=== PATIENT | female | born 1990 | race Asian ===

== ENCOUNTER 2018-03-01 18:56 | Inpatient (IN) | payer OTHER ==
[~2018-03-01] VITALS: Ht 147.3 cm; Wt 38.7 kg
[2018-03-01 19:00] VITALS: Ht 147.3 cm; Wt 38.7 kg
[2018-03-01 19:54] LABS: PLATELET COUNT 242 x10^3mcL (130-400); RED CELL DISTRIBUTION WIDTH 12.9 % (11.5-14.5)
[2018-03-01 19:55] LABS: BASOPHIL % 0 % (0-2)
[2018-03-01 19:59] LABS: ALBUMIN 4.2 g/dL (3.4-5.0); BILIRUBIN TOTAL 1.1 mg/dL (0.20-1.00); CALCIUM 9.6 mg/dL (8.5-10.1); CARBON DIOXIDE 26.9 mmol/L (21-32); CREATININE SERUM 1.3 mg/dL (0.6-1.0)
[2018-03-01 20:10] LABS: TOTAL PROTEIN, SERUM 8.9 g/dL (6.4-8.2)
[2018-03-01 20:11] LABS: POTASSIUM SERUM 2.5 mmol/L (3.5-5.1)
[2018-03-01 21:57] LABS: PHOSPHOROUS 4.2 mg/dL (2.5-4.9)
[2018-03-01 22:00] LABS: CHOLESTEROL/HDL RATIO 6.7
[2018-03-01 22:03] LABS: T3 TOTAL 0.37 ng/mL
[2018-03-01 22:07] LABS: FREE T4 1.02 ng/dL (0.76-1.46); FREE THYROXINE INDEX 1.7 ug/dL (1.4-4.5); T4(THYROXINE) 4.7 ug/dL (4.7-13.3)
[2018-03-02 03:13] LABS: microscopic required? NO
[2018-03-02 03:53] LABS: AMPHETAMINE QUAL UR NONE DETECTED (See below)
[2018-03-02 04:04] LABS: CALCIUM 8.7 mg/dL (8.5-10.1); CARBON DIOXIDE 23.2 mmol/L (21-32); CHLORIDE SERUM 103 mmol/L (98-107); CREATININE SERUM 1.1 mg/dL (0.6-1.0); GFR1 > 60 mL/min; GLUCOSE SERUM 143 mg/dL (74-106); MAGNESIUM 2.4 mg/dL (1.8-2.4); POTASSIUM SERUM 3.5 mmol/L (3.5-5.1); SODIUM SERUM 144 mmol/L (136-145)
[2018-03-02 04:22] LABS: PLATELET COUNT 218 x10^3mcL (130-400); RED CELL DISTRIBUTION WIDTH 12.2 % (11.5-14.5)
[2018-03-02 04:23] LABS: BASOPHIL % 0.1 % (0-2)
[2018-03-02 04:31] LABS: PHOSPHOROUS 0.9 mg/dL (2.5-4.9)
[2018-03-02 05:21] LABS: urine erythrocyte NEGATIVE (NEGATIVE)
[2018-03-02 08:58] VITALS: BP 96/68
[2018-03-02 17:45] VITALS: BP 113/71
[2018-03-02 20:13] VITALS: BP 132/96
[2018-03-03 05:43] VITALS: BP 98/57
[2018-03-03 07:00] LABS: CALCIUM 8.5 mg/dL (8.5-10.1); CARBON DIOXIDE 34.3 mmol/L (21-32); CHLORIDE SERUM 94 mmol/L (98-107); CREATININE SERUM 0.4 mg/dL (0.6-1.0); GFR1 > 60 mL/min; GLUCOSE SERUM 170 mg/dL (74-106); MAGNESIUM 1.7 mg/dL (1.8-2.4); PHOSPHOROUS 1.2 mg/dL (2.5-4.9); SODIUM SERUM 138 mmol/L (136-145)
[2018-03-03 07:03] LABS: POTASSIUM SERUM 1.8 mmol/L (3.5-5.1)
[2018-03-03 07:05] LABS: BASOPHIL % 0.1 % (0-2); PLATELET COUNT 161 x10^3mcL (130-400); RED CELL DISTRIBUTION WIDTH 12.8 % (11.5-14.5)
[2018-03-03 08:56] VITALS: BP 124/86
[2018-03-03 13:43] VITALS: BP 114/77
[2018-03-03 15:25] LABS: CARBON DIOXIDE 35.7 mmol/L (21-32); CHLORIDE SERUM 95 mmol/L (98-107); CREATININE SERUM 0.7 mg/dL (0.6-1.0); GFR1 > 60 mL/min; GLUCOSE SERUM 167 mg/dL (74-106); POTASSIUM SERUM 3.3 mmol/L (3.5-5.1); SODIUM SERUM 137 mmol/L (136-145)
[2018-03-03 17:22] VITALS: BP 104/67
[2018-03-03 20:05] VITALS: BP 98/54
[2018-03-03 22:56] VITALS: BP 105/64
[2018-03-04 05:50] VITALS: BP 99/63
[2018-03-04 06:20] LABS: BASOPHIL % 0.1 % (0-2); PLATELET COUNT 183 x10^3mcL (130-400)
[2018-03-04 06:29] LABS: CALCIUM 9.2 mg/dL (8.5-10.1); CARBON DIOXIDE 35.7 mmol/L (21-32); CHLORIDE SERUM 95 mmol/L (98-107); CREATININE SERUM 0.5 mg/dL (0.6-1.0); GFR1 > 60 mL/min; GLUCOSE SERUM 106 mg/dL (74-106); MAGNESIUM 1.5 mg/dL (1.8-2.4); PHOSPHOROUS 2.3 mg/dL (2.5-4.9); SODIUM SERUM 140 mmol/L (136-145)
[2018-03-04 06:38] LABS: POTASSIUM SERUM 2.7 mmol/L (3.5-5.1)
[2018-03-04 09:42] VITALS: BP 114/83
[2018-03-04 16:24] VITALS: BP 124/65
[2018-03-04 16:26] LABS: CALCIUM 8.6 mg/dL (8.5-10.1); CARBON DIOXIDE 35.6 mmol/L (21-32); CHLORIDE SERUM 99 mmol/L (98-107); CREATININE SERUM 0.5 mg/dL (0.6-1.0); GFR1 > 60 mL/min; GLUCOSE SERUM 150 mg/dL (74-106); MAGNESIUM 2.7 mg/dL (1.8-2.4); POTASSIUM SERUM 3.5 mmol/L (3.5-5.1); SODIUM SERUM 139 mmol/L (136-145)
[2018-03-04 20:55] VITALS: BP 96/57
[2018-03-05 02:55] LABS: CALCIUM 8.4 mg/dL (8.5-10.1); CARBON DIOXIDE 30.3 mmol/L (21-32); CHLORIDE SERUM 109 mmol/L (98-107); CREATININE SERUM 0.5 mg/dL (0.6-1.0); GFR1 > 60 mL/min; GLUCOSE SERUM 146 mg/dL (74-106); POTASSIUM SERUM 4.5 mmol/L (3.5-5.1); SODIUM SERUM 145 mmol/L (136-145)
[2018-03-05 05:49] VITALS: BP 103/65
[2018-03-05 09:18] LABS: VITAMIN B6/PYRIDOXINE 1.8 ug/L (2.0-32.8)
[2018-03-05 09:26] VITALS: BP 107/74
[2018-03-05 13:57] VITALS: BP 103/71
[2018-03-05 17:27] VITALS: BP 106/70
[2018-03-05 21:58] VITALS: BP 107/73
[2018-03-06 05:55] VITALS: BP 106/74
[2018-03-06 09:38] VITALS: BP 117/83
[2018-03-06 12:53] VITALS: BP 116/88
[2018-03-06 17:41] VITALS: BP 133/82
[2018-03-06 21:15] VITALS: BP 104/72
[2018-03-07] VITALS (7 sets, daily range): BP systolic 110–138; BP diastolic 76–103
[2018-03-07 07:04] LABS: CALCIUM 9.4 mg/dL (8.5-10.1); CARBON DIOXIDE 32.8 mmol/L (21-32); CHLORIDE SERUM 104 mmol/L (98-107); CREATININE SERUM 0.4 mg/dL (0.6-1.0); GFR1 > 60 mL/min; GLUCOSE SERUM 113 mg/dL (74-106); POTASSIUM SERUM 3.9 mmol/L (3.5-5.1); SODIUM SERUM 144 mmol/L (136-145)
[2018-03-07 07:14] LABS: BASOPHIL % 0.1 % (0-2); PLATELET COUNT 256 x10^3mcL (130-400)
[2018-03-08 04:55] VITALS: BP 128/78
[2018-03-08 08:03] VITALS: BP 125/86
[2018-03-08 18:56] VITALS: BP 120/77
[2018-03-08 20:44] VITALS: BP 110/64
[2018-03-08 20:50] VITALS: BP 109/80
[2018-03-09 04:45] VITALS: BP 119/80
[2018-03-09 06:29] LABS: BASOPHIL % 0.2 % (0-2); PLATELET COUNT 332 x10^3mcL (130-400); RED CELL DISTRIBUTION WIDTH 13.7 % (11.5-14.5)
[2018-03-09 06:54] LABS: CALCIUM 9.3 mg/dL (8.5-10.1); CARBON DIOXIDE 29.2 mmol/L (21-32); CHLORIDE SERUM 108 mmol/L (98-107); CREATININE SERUM 0.4 mg/dL (0.6-1.0); GFR1 > 60 mL/min; GLUCOSE SERUM 99 mg/dL (74-106); MAGNESIUM 2.5 mg/dL (1.8-2.4); PHOSPHOROUS 3.2 mg/dL (2.5-4.9); POTASSIUM SERUM 3.8 mmol/L (3.5-5.1); SODIUM SERUM 143 mmol/L (136-145)
[2018-03-09 08:46] VITALS: BP 123/81
[2018-03-09 12:37] VITALS: BP 112/72
[2018-03-09 14:08] LABS: RED BLOOD CELLS 3.63 M/mm3 (4.10-5.10)
[2018-03-09 14:15] LABS: IRON 44 ug/dL (50-170); TOTAL IRON BINDING CAPACITY 166 ug/dL (250-450)
[2018-03-09 17:40] VITALS: BP 99/80
[2018-03-09 20:52] VITALS: BP 124/69
[2018-03-10 05:53] VITALS: BP 123/69
[2018-03-10 05:58] LABS: CARBON DIOXIDE 27.7 mmol/L (21-32); CHLORIDE SERUM 108 mmol/L (98-107); CREATININE SERUM 0.4 mg/dL (0.6-1.0); GFR1 > 60 mL/min; GLUCOSE SERUM 95 mg/dL (74-106); MAGNESIUM 2.5 mg/dL (1.8-2.4); POTASSIUM SERUM 3.5 mmol/L (3.5-5.1); SODIUM SERUM 143 mmol/L (136-145)
[2018-03-10 06:37] LABS: BASOPHIL % 0.1 % (0-2); PLATELET COUNT 350 x10^3mcL (130-400)
[2018-03-10 08:07] VITALS: BP 117/76
[2018-03-10 11:41] VITALS: BP 117/72
[2018-03-10 17:30] VITALS: BP 123/77
[2018-03-10 21:32] VITALS: BP 106/56
[2018-03-11] VITALS (7 sets, daily range): BP systolic 113–158; BP diastolic 68–93
[2018-03-11 06:18] LABS: CALCIUM 9.9 mg/dL (8.5-10.1); CARBON DIOXIDE 28.2 mmol/L (21-32); CHLORIDE SERUM 108 mmol/L (98-107); CREATININE SERUM 0.5 mg/dL (0.6-1.0); GFR1 > 60 mL/min; GLUCOSE SERUM 97 mg/dL (74-106); MAGNESIUM 2.7 mg/dL (1.8-2.4); PHOSPHOROUS 5.3 mg/dL (2.5-4.9); POTASSIUM SERUM 3.7 mmol/L (3.5-5.1); SODIUM SERUM 145 mmol/L (136-145)
[2018-03-11 06:21] LABS: BASOPHIL % 0.1 % (0-2); RED CELL DISTRIBUTION WIDTH 14.1 % (11.5-14.5)
[2018-03-11 06:54] LABS: PLATELET COUNT 426 x10^3mcL (130-400)
[2018-03-11 15:51] LABS: FREE T4 1.28 ng/dL (0.76-1.46); FREE THYROXINE INDEX 2.8 ug/dL (1.4-4.5); T3 TOTAL 0.91 ng/mL; T4(THYROXINE) 7.6 ug/dL (4.7-13.3)
[2018-03-12 05:45] VITALS: BP 108/61
[2018-03-12 11:07] VITALS: BP 121/86
[2018-03-12 12:52] VITALS: BP 123/72
[2018-03-12 17:32] VITALS: BP 102/63
[2018-03-12 22:07] VITALS: BP 110/68
[2018-03-13 05:58] VITALS: BP 127/84
[2018-03-13 08:46] VITALS: BP 131/89
[2018-03-13 12:49] VITALS: BP 129/78
[2018-03-13 16:49] VITALS: BP 123/80
[2018-03-13 20:10] VITALS: BP 114/80
[2018-03-14 05:21] VITALS: BP 121/84
[2018-03-14 06:17] LABS: MAGNESIUM 2.3 mg/dL (1.8-2.4); PHOSPHOROUS 4.2 mg/dL (2.5-4.9)
[2018-03-14 07:28] LABS: PLATELET COUNT 315 x10^3mcL (130-400)
[2018-03-14 08:31] VITALS: BP 125/86
[2018-03-14 11:47] LABS: ALKALINE PHOSPHATASE 81 U/L (46-116); ALT/SGPT 92 U/L (14-59); AST/SGOT 30 U/L (15-37); BILIRUBIN TOTAL 0.25 mg/dL (0.20-1.00); CALCIUM 9.1 mg/dL (8.5-10.1); CARBON DIOXIDE 25.7 mmol/L (21-32); CHLORIDE SERUM 106 mmol/L (98-107); CREATININE SERUM 0.4 mg/dL (0.6-1.0); GFR1 > 60 mL/min; GLUCOSE SERUM 133 mg/dL (74-106); POTASSIUM SERUM 3.6 mmol/L (3.5-5.1); SODIUM SERUM 144 mmol/L (136-145); TOTAL PROTEIN, SERUM 7.2 g/dL (6.4-8.2)
[2018-03-14 11:49] LABS: ALBUMIN 2.8 g/dL (3.4-5.0)
[2018-03-14 12:24] VITALS: BP 125/86
[2018-03-14 12:25] VITALS: BP 127/96
[2018-03-14] MEDS ORDERED: ZYPREXA5 M1 PO (12:47)
[2018-03-14 13:04] LABS: BAND NEUTROPHIL 2 % (0-10); MONOCYTE 11 % (0-7); SEGMENTED NEUTROPHILS 70 % (37-75); rbc morphology (normal/abnorm) NORMAL (NORMAL)
[2018-03-14 13:05] LABS: PLATELET MORPHOLOGY PLATELETS NORMAL
[2018-03-14 15:48] VITALS: BP 129/85
== END 2018-03-14 16:00 | DRG 421 ==
LOC: ED 18:56 → MU 20:49 → DU 20:49 → MU 03-02 07:44 → DU 03-03 08:05
PROVIDERS: Emergency Medicine; Internal Medicine
DX: R62.7 Adult failure to thrive (principal); E43 Unspecified severe protein-calorie malnutrition; G92 Toxic encephalopathy; N17.9 Acute kidney failure, unspecified; R65.10 Systemic inflammatory response syndrome (SIRS) of non-infectious origin without acute organ dysfunction; F20.2 Catatonic schizophrenia; E83.41 Hypermagnesemia; E86.0 Dehydration; F32.9 Major depressive disorder, single episode, unspecified; E87.6 Hypokalemia; E78.5 Hyperlipidemia, unspecified; Z68.1 Body mass index [BMI] 19.9 or less, adult; D64.9 Anemia, unspecified
CPT/HCPCS: 83880; 84207; 84439; 92526-GN; 92610; 97110-GP; 97116-GP; 97530-GP; G0480; J2060; J2543; J3475; J3480; J3490; J7030; J7040; J7042; J7050; J7620; Q0092